=== PATIENT | male | born 1975 | race Caucasian/White ===

== ENCOUNTER 2017-05-19 05:36 | Emergency (ER) | payer MEDICAID ==
[~2017-05-19] VITALS: Ht 190.5 cm; Wt 129.3 kg
[2017-05-19 08:03] LABS: Basophils # (auto) 0 uL; Basophils % (auto) 0.4 % (0.0-2.0); Eosinophils # (auto) 0.1 uL; Eosinophils % (auto) 1.1 % (0.0-7.0); Hematocrit 50.7 % (41.0-53.0); Hemoglobin 17.5 g/dL (13.5-17.5); Lymphocytes # (auto) 1.9 uL; Lymphocytes % (auto) 19.4 % (10.0-50.0); Mean Corpuscular Hemoglobin 30.8 pg (28.0-32.0); Mean Corpuscular Hgb Conc. 34.4 g/dL (32.0-36.0); Mean Corpuscular Volume 89.5 fL (80.0-100.0); Monocytes # (auto) 0.7 uL; Monocytes % (auto) 7.1 % (0.0-12.0); Nucleated Red Blood Cells % 0.1 %; Platelet Count (auto) 229 10^3/uL (140-450); Red Blood Cells 5.66 10^6/uL (4.5-5.90); Red Cell Distribution Width 14.3 % (11.8-14.3); White Blood Cell 9.7 10^3/uL (4.4-10.8)
[2017-05-19 08:08] LABS: Calcium 8.9 mg/dL (8.5-10.1); Potassium 4.2 mmol/L (3.5-5.1)
[2017-05-19 08:27] LABS: BUN/Creatinine Ratio 14.2; Bilirubin, Total 0.5 mg/dL (0.2-1.0); Total Protein 7.5 g/dL (6.4-8.2)
[2017-05-19] MEDS ORDERED: SODIUM CHLORIDE 0.9% 1,000 ML IV ONE (09:06)
[2017-05-19] MEDS ORDERED: IPRATROPIUM BROM 0.5 MG/2.5ML INH SOL NEB ONE (09:15)
[2017-05-19] MEDS ORDERED: NAPROXEN 500 MG TAB PO ONE (09:15)
[2017-05-19] MEDS ORDERED: ALBUTEROL SULF 2.5 MG/0.5ML(0.5%) NEB SOLN NEB ONE (09:15)
[2017-05-19 12:11] VITALS: BP 97/70
== END 2017-05-19 12:14 | disposition home or self-care (01) ==
LOC: ER 05:40
DX: J45.901 Unspecified asthma with (acute) exacerbation (principal); J11.1 Influenza due to unidentified influenza virus with other respiratory manifestations; F17.210 Nicotine dependence, cigarettes, uncomplicated
CPT/HCPCS: 36415; 71046; 80053; 81002; 85025; 87070; 87400; 87880; 94640; 96360; 99285; J7030

== ENCOUNTER 2022-03-08 19:25 | Emergency (ER) | payer MEDICAID ==
[~2022-03-08] VITALS: Ht 190.5 cm; Wt 128.6 kg
[2022-03-08 20:21] LABS: Basophils # (auto) 0.1 10 ^3/uL (0-0.2); Basophils % (auto) 0.3 % (0.0-2.0); Eosinophils # (auto) 0.1 10 ^3/uL (0-0.8); Eosinophils % (auto) 0.7 % (0.0-7.0); Hematocrit 50.5 % (41.0-53.0); Hemoglobin 17.2 g/dL (13.5-17.5); Lymphocytes # (auto) 1.2 10 ^3/uL (0.4-5.4); Lymphocytes % (auto) 6.7 % (10.0-50.0); Mean Corpuscular Hemoglobin 30.1 pg (28.0-32.0); Mean Corpuscular Volume 88.4 fL (80.0-100.0); Monocytes # (auto) 0.8 10 ^3/uL (0-1.3); Monocytes % (auto) 4.6 % (0.0-12.0); Neutrophils # (auto) 15.4 10 ^3/uL (1.6-8.6); Neutrophils % (auto) 87.7 % (37.0-80.0); Nucleated Red Blood Cells % 0.1 %; Red Blood Cells 5.71 10^6/uL (4.5-5.90); Red Cell Distribution Width 14.2 % (11.8-14.3); White Blood Cell 17.5 10^3/uL (4.4-10.8)
[2022-03-08 20:44] LABS: Albumin 3.3 g/dL (3.4-5.0); BUN/Creatinine Ratio 12.3; Calcium 8.2 mg/dL (8.5-10.1)
[2022-03-08 20:54] LABS: Bilirubin, Total 0.6 mg/dL (0.2-1.0); Total Protein 6.5 g/dL (6.4-8.2)
[2022-03-08 22:31] LABS: Urine Bacteria FEW /hpf (None Seen); Urine Blood TRACE /uL (Negative); Urine Mucus FEW (None Seen); Urine Specific Gravity 1.023 (1.001-1.035); Urine WBC 38 /hpf (0 - 3)
[2022-03-09] MEDS ORDERED: DOXY-340 PO (03:29)
[2022-03-09] MEDS ORDERED: cefTRIAXone 1GM/50ML D5W 50 ML IV ONE (03:30)
[2022-03-09] MEDS ORDERED: cefTRIAXone SOD 1,000 MG VL IM ONE (04:30)
[2022-03-09 04:37] VITALS: BP 105/57
== END 2022-03-09 04:40 | disposition home or self-care (01) ==
LOC: ER 19:25
DX: N39.0 Urinary tract infection, site not specified (principal); N41.9 Inflammatory disease of prostate, unspecified; K40.90 Unilateral inguinal hernia, without obstruction or gangrene, not specified as recurrent
CPT/HCPCS: 36415; 71045; 74176; 76870; 80053; 81001; 83880; 84484; 85025; 93005; 96372; 99285; J0696

== ENCOUNTER 2022-10-02 19:40 | Emergency (ER) | payer MEDICAID ==
[~2022-10-02] VITALS: Ht 188 cm; Wt 125.0 kg
[~2022-10-02 19:40] MED LIST: DOXY-340 PO
[2022-10-02 19:56] VITALS: BP 120/58
[2022-10-02] MEDS ORDERED: IBUPROFEN 800 MG TAB PO ONE (22:00)
[2022-10-02] MEDS ORDERED: IBUP800T26 PO (22:03)
== END 2022-10-03 01:31 | disposition home or self-care (01) ==
LOC: ER 19:43
DX: S82.52XA Displaced fracture of medial malleolus of left tibia, initial encounter for closed fracture (principal); S92.812A Other fracture of left foot, initial encounter for closed fracture; J45.909 Unspecified asthma, uncomplicated; F17.210 Nicotine dependence, cigarettes, uncomplicated; Z79.2 Long term (current) use of antibiotics; W01.0XXA Fall on same level from slipping, tripping and stumbling without subsequent striking against object, initial encounter; Y93.89 Activity, other specified; Y92.89 Other specified places as the place of occurrence of the external cause; Y99.8 Other external cause status
CPT/HCPCS: 29515; 73610; 73630

== ENCOUNTER 2023-12-19 01:16 | Inpatient (IN) | payer MEDICAID ==
[~2023-12-19] VITALS: Ht 188 cm; Wt 139.0 kg
[2023-12-19] VITALS (11 sets, daily range): BP systolic 103–135; BP diastolic 62–78; PULSE 80–104; RESP 12–20; TEMP 97.8–98.8; O2SAT 92–100
[~2023-12-19 01:16] MED LIST changes: -DOXY-340 PO; +DOXY1CAP57 PO; +IBUP-1455 PO
[2023-12-19] MEDS: ALBUTEROL SULF 2.5 MG/0.5ML(0.5%) NEB SOLN NEB ONE (01:47)
[2023-12-19] MEDS: IPRATROPIUM BROM 0.5 MG/2.5ML INH SOL NEB ONE (01:47)
[2023-12-19 03:02] LABS: Eosinophils # (auto) 0.1 10 ^3/uL (0-0.8); Mean Corpuscular Hemoglobin 30.7 pg (28.0-32.0); Red Cell Distribution Width 15.2 % (11.8-14.3)
[2023-12-19 03:03] LABS: Basophils # (auto) 0 10 ^3/uL (0-0.2); Basophils % (auto) 0.3 % (0.0-2.0); Eosinophils % (auto) 0.7 % (0.0-7.0); Hematocrit 51.7 % (41.0-53.0); Hemoglobin 17.8 g/dL (13.5-17.5); Lymphocytes % (auto) 13.6 % (10.0-50.0); Mean Corpuscular Hgb Conc. 34.3 g/dL (32.0-36.0); Mean Corpuscular Volume 89.3 fL (80.0-100.0); Monocytes # (auto) 0.7 10 ^3/uL (0-1.3); Monocytes % (auto) 4.9 % (0.0-12.0); Neutrophils # (auto) 12.1 10 ^3/uL (1.6-8.6); Neutrophils % (auto) 80.5 % (37.0-80.0); Platelet Count (auto) 215 10^3/uL (140-450); Red Blood Cells 5.79 10^6/uL (4.5-5.90)
[2023-12-19] MEDS: KETOROLAC TROMETH 30 MG/ML 1ML VIAL IV ONE (03:05)
[2023-12-19] MEDS: PANTOPRAZOLE 40 MG/10 ML VIAL INJ IV ONE (03:05)
[2023-12-19] MEDS: ONDANSETRON HCL 4 MG/2 ML VIAL IV ONE ×2 (03:05→11:30)
[2023-12-19] MEDS: SODIUM CHLORIDE 0.9% 1,000 ML IV ONE (03:05)
[2023-12-19 03:19] LABS: Alanine Aminotransferase 30 U/L (7-40); Albumin 4.4 g/dL (3.2-4.8); Alkaline Phosphatase 122 U/L (46-116); Anion Gap 9 (5-15); Aspartate Aminotransferase 10 U/L (13-40); BUN/Creatinine Ratio 14.7 (10.0-20.0); Blood Urea Nitrogen 15 mg/dL (9-23); Calcium 9.7 mg/dL (8.7-10.4); Carbon Dioxide 22 mmol/L (20-30); Chloride 108 mmol/L (98-107); Glucose 153 mg/dL (74-106); Sodium 139 mmol/L (136-145)
[2023-12-19 03:20] LABS: Bilirubin, Total 0.8 mg/dL (0.2-1.0)
[2023-12-19 03:36] LABS: Amphetamine Screen, Urine Neg (NEGATIVE); Barbiturate Scree,Urine Neg (NEGATIVE); Benzodiazephine Screen, Urine Neg (NEGATIVE); Cocaine Screen, Urine Neg (NEGATIVE); Opiate Scree,Urine Neg (NEGATIVE)
[2023-12-19 03:37] LABS: Cannabinoid Screen, Urine Neg (NEGATIVE); Phencyclidine Screen, Urine Neg (NEGATIVE)
[2023-12-19 03:40] LABS: Blood Alcohol < 3.0 mg/dL (<10)
[2023-12-19 04:07] LABS: Urine Bacteria None Seen /hpf (None Seen); Urine WBC None Seen /hpf (0 - 3)
[2023-12-19] MEDS: metroNIDAZOLE 500MG/100ML 100 ML IV ONE (04:45)
[2023-12-19] MEDS: MORPHINE SULFATE 4 MG/ML SYR/VIAL IV ONE (04:45)
[2023-12-19 04:55] LABS: Urine Blood TRACE /uL (Negative); Urine Budding Yeast MANY /hpf (None Seen); Urine Clarity Turbid (Clear); Urine Color Yellow (Yellow); Urine Mucus FEW (None Seen); Urine Protein, UAD TRACE (Negative); Urine Specific Gravity 1.049 (1.001-1.035); Urine Urobilinogen Normal (Negative); Urine pH 6.5 (5.0-9.0)
[2023-12-19] MEDS: IOHEXOL 300 MG/ML 100ML BOTTLE IJ ONE (05:21)
[2023-12-19] MEDS: ceFAZolin 2 GM/D5W50ml 50 ML IV ONE (05:56)
[2023-12-19] MEDS ORDERED: NITROGLYCERIN 0.4 MG SL TAB SL PRN (06:00)
[2023-12-19] MEDS ORDERED: ALBUTEROL SULF 2.5 MG/0.5ML(0.5%) NEB SOLN NEB PRN (06:00)
[2023-12-19] MEDS ORDERED: MORPHINE SULFATE INJ 2 MG/ml SYRG IV PRN ×2 (06:00)
[2023-12-19] MEDS: SODIUM CHLORIDE 0.9% 1,000 ML IV SCH (06:14)
[2023-12-19] MEDS: PIPERACILLIN-TAZOB 3.375GM 100 ML IV SCH (06:59)
[2023-12-19 07:13] LABS: INR 1.04 (0.9-1.15); Partial Thromboplastin Time 25.7 SEC (24.5-34.5)
[2023-12-19] MEDS ORDERED: fentaNYL CITRATE 100 MCG/2 ML VL ONE (09:17)
[2023-12-19] MEDS ORDERED: KETAMINE 50mg/ML 1ml syringe ONE (09:17)
[2023-12-19] MEDS ORDERED: HYDROmorphone HCL 2 MG/ML VL/or syr ONE (09:17)
[2023-12-19] MEDS ORDERED: MIDAZOLAM HCL 2MG/2ML 2ml VIAL (1mg/ml) ONE (09:18)
[2023-12-19] MEDS ORDERED: LIDOCAINE 1% INJ PF 5ML AMP ONE (09:18)
[2023-12-19] MEDS ORDERED: PROPOFOL 10 MG/ML 20 ML IV ONE (09:18)
[2023-12-19] MEDS ORDERED: ONDANSETRON HCL 4 MG/2 ML VIAL ONE (09:18)
[2023-12-19] MEDS ORDERED: DexAMETHasone SOD PHOS 10MG/1ML VIAL INJ ONE (09:18)
[2023-12-19] MEDS ORDERED: ROCURONIUM 10MG/ML 10ML VIAL IV ONE (09:18)
[2023-12-19] MEDS ORDERED: HYDROcodone-ACET 5/325MG TAB PO PRN (09:45)
[2023-12-19] MEDS: BUPIVACAINE 0.25% INJ 50ML VIAL ONE (10:50)
[2023-12-19] MEDS: LIDOCAINE W/ EPINEPHRINE 2% INJ 20ML VIAL ONE (10:50)
[2023-12-19] MEDS: ACCU-CHEK COMFORT CURVE STRIP VI ONE (11:30)
[2023-12-19] MEDS ORDERED: HYDROmorphone HCL 2 MG/ML VL/or syr IV PRN (11:30)
[2023-12-19] MEDS: IPRATROPIUM BROM 0.5 MG/2.5ML INH SOL NEB SCH (11:42)
[2023-12-19] MEDS: ALBUTEROL SULF 2.5 MG/0.5ML(0.5%) NEB SOLN NEB SCH (11:42)
[2023-12-19] MEDS: D5W/SOD CHL 0.45%/KCL 20MEQ 1,000 ML IV SCH (12:40)
[2023-12-19] MEDS: ONDANSETRON HCL 4 MG/2 ML VIAL IV PRN (12:41)
[2023-12-19 13:37] LABS: Hepatitis B Surface Antigen Negative (Negative)
[2023-12-19 13:58] LABS: Hepatitis C Antibody Negative (Negative)
[2023-12-19] MEDS: ACETAMINOPHEN 325 MG TAB PO PRN (23:39)
[2023-12-20] VITALS (8 sets, daily range): BP systolic 101–110; BP diastolic 55–71; PULSE 66–91; RESP 18–20; TEMP 97.6–98.2; O2SAT 93–97
[2023-12-20 06:17] LABS: Basophils # (auto) 0 10 ^3/uL (0-0.2); Basophils % (auto) 0.1 % (0.0-2.0); Eosinophils # (auto) 0 10 ^3/uL (0-0.8); Hematocrit 45.7 % (41.0-53.0); Hemoglobin 15.2 g/dL (13.5-17.5); Lymphocytes # (auto) 1.7 10 ^3/uL (0.4-5.4); Lymphocytes % (auto) 11.2 % (10.0-50.0); Mean Corpuscular Hemoglobin 29.9 pg (28.0-32.0); Mean Corpuscular Hgb Conc. 33.4 g/dL (32.0-36.0); Mean Corpuscular Volume 89.7 fL (80.0-100.0); Monocytes # (auto) 0.7 10 ^3/uL (0-1.3); Monocytes % (auto) 4.5 % (0.0-12.0); Neutrophils % (auto) 84.2 % (37.0-80.0); Platelet Count (auto) 185 10^3/uL (140-450); Red Blood Cells 5.09 10^6/uL (4.5-5.90); White Blood Cell 15.5 10^3/uL (4.4-10.8)
[2023-12-20 06:26] LABS: Alanine Aminotransferase 18 U/L (7-40); Albumin 3.9 g/dL (3.2-4.8); Alkaline Phosphatase 101 U/L (46-116); Anion Gap 6 (5-15); Aspartate Aminotransferase < 8 U/L (13-40); BUN/Creatinine Ratio 10.6 (10.0-20.0); Blood Urea Nitrogen 10 mg/dL (9-23); Calcium 9.3 mg/dL (8.7-10.4); Carbon Dioxide 25 mmol/L (20-30); Chloride 106 mmol/L (98-107); Glucose 157 mg/dL (74-106); Potassium 4.4 mmol/L (3.5-5.1); Sodium 137 mmol/L (136-145); Total Protein 5.7 g/dL (5.7-8.2)
[2023-12-20] MEDS: PANTOPRAZOLE 40 MG/10 ML VIAL INJ IV SCH (09:45)
[2023-12-20] MEDS ORDERED: AUG875T PO (12:26)
== END 2023-12-20 14:00 | disposition home or self-care (01) | DRG 710 ==
LOC: ER 01:16 → TELE 06:04 → WEST WING 12:28
PROVIDERS: ADMIT Nurse Practitioner; ATTEND Internal Medicine Geriatric Medicine
PROC: 0DTJ4ZZ Resection of Appendix, Percutaneous Endoscopic Approach (ICD-10-PCS; principal; 2023-12-19 10:15)
DX: A41.9 Sepsis, unspecified organism (principal); E66.01 Morbid (severe) obesity due to excess calories; K35.30 Acute appendicitis with localized peritonitis, without perforation or gangrene; J44.9 Chronic obstructive pulmonary disease, unspecified; I10 Essential (primary) hypertension; Z68.39 Body mass index [BMI] 39.0-39.9, adult; Z79.899 Other long term (current) drug therapy; Z72.0 Tobacco use
CPT/HCPCS: 36415; 71045; 74177; 80053; 80307; 80320; 81001; 82962; 83605; 85025; 85610; 85730; 86803; 86850; 86900; 86901; 87340; 94640; G0378; J1100; J1885; J2250; J2405; J2470; J2543; J2704; J3490

== ENCOUNTER 2023-12-23 14:12 | Emergency (ER) | payer MEDICAID ==
[~2023-12-23] VITALS: Ht 188 cm; Wt 127.5 kg
[~2023-12-23 14:12] MED LIST changes: +AUG875T PO
[2023-12-23 16:54] LABS: Basophils # (auto) 0 10 ^3/uL (0-0.2); Basophils % (auto) 0.3 % (0.0-2.0); Eosinophils # (auto) 0.3 10 ^3/uL (0-0.8); Eosinophils % (auto) 2.6 % (0.0-7.0); Hematocrit 49.7 % (41.0-53.0); Hemoglobin 17.1 g/dL (13.5-17.5); Lymphocytes # (auto) 2.2 10 ^3/uL (0.4-5.4); Lymphocytes % (auto) 21.5 % (10.0-50.0); Mean Corpuscular Hemoglobin 31.1 pg (28.0-32.0); Mean Corpuscular Hgb Conc. 34.5 g/dL (32.0-36.0); Mean Corpuscular Volume 90.4 fL (80.0-100.0); Monocytes # (auto) 0.5 10 ^3/uL (0-1.3); Monocytes % (auto) 5.3 % (0.0-12.0); Neutrophils % (auto) 70.3 % (37.0-80.0); Nucleated Red Blood Cells % 0.1 %
[2023-12-23 17:11] VITALS: BP 119/66; PULSE 87; RESP 18; TEMP 99; O2SAT 96
[2023-12-23 17:22] LABS: Urine Bacteria None Seen /hpf (None Seen)
[2023-12-23 17:23] LABS: Alanine Aminotransferase 29 U/L (7-40); Albumin 4.2 g/dL (3.2-4.8); Alkaline Phosphatase 119 U/L (46-116); Anion Gap 7 (5-15); Aspartate Aminotransferase 16 U/L (13-40); BUN/Creatinine Ratio 11.8 (10.0-20.0); Bilirubin, Total 0.5 mg/dL (0.2-1.0); Blood Urea Nitrogen 12 mg/dL (9-23); Calcium 9.4 mg/dL (8.7-10.4); Carbon Dioxide 23 mmol/L (20-30); Chloride 109 mmol/L (98-107); Glucose 142 mg/dL (74-106); Potassium 4.1 mmol/L (3.5-5.1); Sodium 139 mmol/L (136-145); Total Protein 6.3 g/dL (5.7-8.2)
[2023-12-23 17:37] LABS: Urine Blood TRACE /uL (Negative); Urine Clarity Clear (Clear); Urine Color Yellow (Yellow); Urine Protein, UAD Negative (Negative); Urine Specific Gravity 1.026 (1.001-1.035); Urine Urobilinogen 2 mg/dL (Negative); Urine WBC <1 /hpf (0 - 3); Urine pH 5.5 (5.0-9.0)
== END 2023-12-23 19:30 | disposition home or self-care (01) ==
LOC: ER 14:12
DX: H11.33 Conjunctival hemorrhage, bilateral (principal); J45.909 Unspecified asthma, uncomplicated; F17.210 Nicotine dependence, cigarettes, uncomplicated
CPT/HCPCS: 36415; 80053; 81001; 85025